=== PATIENT | female | born 1945 | race Caucasian/White ===

== ENCOUNTER 2022-04-01 10:44 | Outpatient (CLI) | payer MEDICARE, BC, SELFPAY ==
--- NOTE | 2022-04-01 12:09 | W.ANESCHARGE ---
Anesthesia Charges Start Date/Time Anesthesia Start Date: 04/01/22 Anesthesia Start Time: 11:33 Stop Date/Time Anesthesia Stop Date: 04/01/22 Anesthesia Stop Time: 11:53 Summary Extremes of Age: Over 69-CPT 41757
--- NOTE | 2022-04-01 12:15 | W.ANESCHARGE ---
Anesthesia Charges Start Date/Time Anesthesia Start Date: 04/01/22 Anesthesia Start Time: 11:33 Stop Date/Time Anesthesia Stop Date: 04/01/22 Anesthesia Stop Time: 11:53 Summary Extremes of Age: Over 69-CPT 55250
== END 2022-04-01 10:45 | disposition home or self-care (01) ==
LOC: OP CLINIC 10:45
PROVIDERS: PCP Family Medicine; Visit Provider Surgery
DX: R19.8 Other specified symptoms and signs involving the digestive system and abdomen (principal)
CPT/HCPCS: 43239; 731; 88305; 99100; J2704

== ENCOUNTER 2023-03-15 14:53 | Emergency (ER) | payer MEDICARE, BC, SELFPAY ==
[2023-03-15 15:04] VITALS: BP 150/86; PULSE 82; RESP 16; TEMP 36.7; O2SAT 97; BMI 21.8
--- NOTE | 2023-03-15 15:50 | ED_ITS ---
HPI - General Adult General Time Seen by Provider: 15:50 Date Seen: 03/15/23 Chief complaint: Extremity Pain/Injury, Lower Stated complaint: Cut left leg on metal fencing, it's dripping water Time Seen by Provider: 03/15/23 15:36 Source: patient and RN notes reviewed Mode of arrival: ambulatory Limitations: no limitations History of Present Illness HPI narrative: Patient is a 78-year-old female coming in after scraping her left lower leg on a metal fence yesterday. There is no significant pain but she is intolerant of the amount of drainage that is coming from this. She is on Lasix for edema. She does have compression stockings but does not like to wear them because her legs become too hot into itchy. This wound is weeping clear fluid. She reports a previous injury where this happened for about a week increase she could not leave the house. On questioning, she states she has been feeling more short of breath lately but not noting increased lower extremity edema. She thought maybe she would talk to her education program associate, does have underlying atrial fibrillation. No chest pain. No fevers or chills. We did look up her tetanus and her last tetanus was 02/15/2013, does agree to have it updated today. Related Data Home Medications Medication Instructions Recorded Confirmed diltiazem HCl 180 mg 180 mg PO DAILY 03/15/23 03/15/23 capsule,extended release 24 hr, controlled furosemide 40 mg tablet 40 mg PO QAM 03/15/23 03/15/23 omeprazole 40 mg capsule,delayed 40 mg PO DAILY 03/15/23 03/15/23 release potassium chloride 20 mEq 20 meq PO DAILY 03/15/23 03/15/23 tablet,extended release rosuvastatin 20 mg tablet 20 mg PO QPM 03/15/23 03/15/23 Allergies Allergy/AdvReac Type Severity Reaction Status Date / Time aspirin Allergy Mild GI upset Verified 03/26/22 09:49 gadodiamide Allergy Mild rash after Verified 03/26/22 09:49 CT cheat 03/2007 lidocaine Allergy Mild Verified 03/26/22 09:49 penicillin V Allergy Mild Verified 03/26/22 09:49 ranitidine Allergy Mild Unknown Verified 03/26/22 09:49 Contrast dye Allergy Mild rash after Uncoded 03/26/22 09:49 CT cheat 03/2007 Review of Systems Narrative: As per HPI. [facility] PFS Social History Smoking Status: Never smoker Do you use any of these nicotine containing products: None How often do you have a drink containing alcohol: never AUDIT-C Alcohol total score: 0 Non-prescribed substance use: denies use service: No Exam Const: Vital Signs, click to edit/add: Vital Signs - 24 hr 03/15/23 15:04 03/15/23 17:05 Temperature 98.1 F 97.1 F L Pulse Rate [Pulse Oximeter] 82 82 Respiratory Rate 16 20 Blood Pressure [Ri ght Upper Arm] 150/86 H 143/90 H Pulse Oximetry 97 96 Oxygen Delivery Me thod Room Air Room Air Documenting provider has reviewed patient's vital signs: yes Common normals: no apparent distress, average body habitus, oriented x3, no limitations, healthy appearing and alert General appearance: cooperative, comfortable, well kempt and well developed HENMT: Common normals: normocephalic, head/scalp atraumatic, hearing grossly normal bilaterally and external nose normal Head and scalp: normocephalic and atraumatic Face and sinus: normal facial exam Nose: external nose normal Eye: Common normals: PERRL, EOMs intact bilaterally, conjunctivae normal and no scleral icterus Conjunctiva: conjunctiva(e) normal Pupil: PERRL Neck & C-Spine: Common normals: full ROM, no lymphadenopathy, supple, no meningeal signs, no JVD and thyroid normal Thyroid: thyroid normal Resp: Common normals: normal respiratory effort, no retractions, no use of accessory muscles and clear to auscultation bilaterally Auscultation: clear to auscultation bilaterally Cardio: Common normals: no JVD Other: Heart sounds regular when I listen to it but later when I palpate her pulse, do feel some irregularity, heart rate is certainly not fast. No murmur, normal S1 and S2. GI: Common normals: Normal to inspection, nondistended, normoactive bowel sounds present, soft to palpation, non-tender, no hepatosplenomegaly and no masses Palpation: soft and no hepatosplenomegaly Extremity: Other: Patient's lower extremities are visualized. She does have some bilateral varicose veins, nothing tender thrombosed. On her right lower extremity distally there is more pinkish skin changes with some pinpoint petechial changes consistent with chronic venous changes. She has no warmth to legs nontender. On the left lower extremity medially she has a oblique superficial denuding of the epidermis, about 3 cm long maybe about 0.5 cm wide. There is no active bleeding. Dressing was removed and can see some serous seepage into the bandages, she shows me serous seepage into a bandage that she had worn earlier. There is no erythema, no evidence of infection. She has less pronounced pinkish skin changes and evidence of capillary breakage in this extremity. Overall, does not have extensive edema in her legs at this time but there certainly skin changes that would go with venous stasis, do see where she is had clear weeping onto the bandage that I have removed. Neuro: Common normals: oriented x3 Sensorium/orientation: alert Meningeal signs: no meningeal signs Psych: Appearance: well kempt Course Course Hospital Course: Did discussed with patient we could certainly do an EKG and checkup portable chest x-ray to ensure no CHF. Certainly her lungs are clear at this time, heart rate sounds regular. She is not short of breath per se at this time but has noted some recently. We can just make sure that she is not in any decompensated congestive heart failure that might require increased her diuretics, overall looks quite stable. Have reviewed with her as far as the wound on her lower extremity, there is no quick fix for this. Until the wound is healing over, she is going to expect some seepage from it. It is not infected. We do need to update her tetanus which she does agree to. I would recommend trying to elevate her legs when she does not 1 0 do compressive therapies. While this wound is open, the best thing she can do is try to elevate her legs and minimize standing for long periods of time as this may help decrease the weeping. Vital Signs Vital signs: Initial Vital Signs Temperature 98.1 F 03/15/23 15:04 Temperature Source Temporal Artery Scan 03/15/23 15:04 Pulse Rate 82 03/15/23 15:04 Respiratory Rate 16 03/15/23 15:04 Blood Pressure 150/86 H 03/15/23 15:04 Blood Pressure Mean 107 H 03/15/23 15:04 Blood Pressure Position Sitting 03/15/23 15:04 Pulse Oximetry 97 03/15/23 15:04 Oxygen Delivery Method Room Air 07/08/23 15:04 Vital Signs Temperature 98.1 F 03/15/23 15:04 Pulse Rate 82 03/15/23 15:04 Respiratory Rate 16 03/15/23 15:04 Blood Pressure 150/86 H 03/15/23 15:04 Pulse Oximetry 97 03/15/23 15:04 Oxygen Delivery Method Room Air 03/15/23 15:04 Temperature 97.1 F L 03/15/23 17:05 Pulse Rate 82 03/15/23 17:05 Respiratory Rate 20 03/15/23 17:05 Blood Pressure 143/90 H 03/15/23 17:05 Pulse Oximetry 96 03/15/23 17:05 Oxygen Delivery Method Room Air 03/15/23 17:05 Medical Decision Making Imaging Data Chest x-ray: Attestation: I have reviewed the pertinent imaging results. My impression: Significant cardiomegaly, no evidence of any CHF in my preliminary review. Radiologist's impression: Patient: LEANDRO WALLS Facility:?[facility] Patient ID:?[id number] Site Patient ID:?[id number]. Site :?[id number] Study:?XRay Chest Portable-03/15/2023 4:00:07 PM Ordering Physician:Delmer Glass Final Report: Indication: Shortness of breath, AFib Technique: AP view of the chest. Comparison: Chest radiograph on December 29, 2010. CT chest on November 17, 2015. Findings: New cardiomegaly. Normal mediastinal contour. Mild pulmonary edema, accounting for differences in technique. Hyperexpansion of the lungs with flattening of the diaphragms suggestive of obstructive pulmonary disease. No pleural effusion or pneumothorax. No acute fracture. Visualized upper abdomen is unremarkable. Impression: 1. New cardiomegaly, accounting for differences in technique compared to chest radiograph dated December 29, 2010. Correlate with echocardiography. 2. Mild pulmonary edema. 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 Dress leg with bandages, change as needed. Try to elevate your legs as much as you can as this will help decrease the drainage and swelling of your lower extremities. There is no evidence of infection at this time but follow up if you have concerns for this developing. Activity Level: Activity as Tolerated Prescriptions: No Action furosemide 40 mg tablet 40 mg PO QAM omeprazole 40 mg capsule,delayed release(DR/EC) 40 mg PO DAILY diltiazem HCl 180 mg capsule,ext.rel 24h degradable 180 mg PO DAILY rosuvastatin 20 mg tablet 20 mg PO QPM potassium chloride 20 mEq tablet extended release 20 meq PO DAILY Follow Up/Referrals: Marilin Lezama MD [Primary Care Provider] - Stand Alone Forms: [employer] Info Instructions
--- NOTE | 2023-03-15 15:51 | CRLHL7_ITS ---
For Patients: As a result of the Cures Act, medical imaging exams and procedure reports are released immediately into your electronic medical record. You may view this report before your referring provider. If you have questions, please contact your health care provider. Indication: Shortness of breath, AFib Technique: AP view of the chest. Comparison: Chest radiograph on December 29, 2010. CT chest on November 17, 2015. Findings: New cardiomegaly. Normal mediastinal contour. Mild pulmonary edema, accounting for differences in technique. Hyperexpansion of the lungs with flattening of the diaphragms suggestive of obstructive pulmonary disease. No pleural effusion or pneumothorax. No acute fracture. Visualized upper abdomen is unremarkable. Impression: 1. New cardiomegaly, accounting for differences in technique compared to chest radiograph dated December 29, 2010. Correlate with echocardiography. 2. Mild pulmonary edema. Dictated by Дмитрий Pfeiffer MD @ 03/15/2023 4:49:01 PM (Electronically Signed)
[2023-03-15 17:05] VITALS: BP 143/90; PULSE 82; RESP 20; TEMP 36.2; O2SAT 96
[2023-03-15] MEDS: TETANUS/DIPHTH/PERTUSSIS 0.5 ML SYRINGE IM (17:37)
== END 2023-03-15 18:01 | disposition home or self-care (01) ==
PROVIDERS: Emergency Provider Family Medicine; PCP Family Medicine
DX: S80.812A Abrasion, left lower leg, initial encounter (principal); R60.0 Localized edema; I87.2 Venous insufficiency (chronic) (peripheral); W26.8XXA Contact with other sharp object(s), not elsewhere classified, initial encounter
CPT/HCPCS: 71045; 90471; 90715; 93005; 99283; 99284